=== PATIENT | female | born 1970 | race Caucasian/White ===

== ENCOUNTER 2016-07-14 00:49 | Emergency (ER) | payer MEDICAID ==
[~2016-07-14] VITALS: Ht 157.5 cm; Wt 81.6 kg
[~2016-07-14 00:49] MED LIST: MOTRIN400 MG PO
[2016-07-14 00:51] VITALS: BP 114/53
--- NOTE | 2016-07-14 01:05 | NUR ---
TO ER BED 4
[2016-07-14] MEDS ORDERED: LORazepam 1 MG TAB PO ONE (01:20)
--- NOTE | 2016-07-14 01:20 | NUR ---
45Y F BIB SON C/O OF TINGLING SENSATION TO BOTH LEGS. ABLE TO MOVE ALL EXTREMITIES AND SKIN WARM AND DRY. V/S WNL. DENIES PAIN.
[2016-07-14] MEDS ORDERED: POTASSIUM CHLORIDE 10 MEQ TABER PO ONE (02:20)
[2016-07-14 02:50] VITALS: BP 118/90
== END 2016-07-14 02:50 | disposition home or self-care (01) ==
LOC: MED 00:49
DX: F41.9 Anxiety disorder, unspecified (principal); E87.6 Hypokalemia; R20.9 Unspecified disturbances of skin sensation; Z88.0 Allergy status to penicillin